=== PATIENT | female | born 1985 | race Caucasian/White ===

== ENCOUNTER 2018-08-16 13:36 | Inpatient (IN) | payer OTHER ==
[~2018-08-16] VITALS: Ht 160 cm; Wt 77.3 kg
[2018-08-16 14:45] LABS: BASOPHILS % (AUTO) 0.7 % (0.0-2.0); EOSINOPHILS % (AUTO) 0.3 % (1.0-6.0); HEMATOCRIT 39.5 % (36-46); HEMOGLOBIN 12.9 g/dL (12.0-16.0); LYMPHOCYTES # (AUTO) 1.9 K/uL (1.0-4.8); LYMPHOCYTES % (AUTO) 24.1 % (22.0-44.0); MEAN CORPUSCULAR HGB CONC 32.8 G/dL (31.0-37.0); MEAN CORPUSCULAR VOLUME 89 fL (80-100); MONOCYTES # (AUTO) 0.5 K/uL (0.1-1.0); MONOCYTES % (AUTO) 6.9 % (2.0-9.0); NEUTROPHILS # (AUTO) 5.4 K/uL (1.8-7.7); PLATELET COUNT (AUTO) 132 K/uL (150-450); RED BLOOD CELL COUNT(AUTO) 4.46 MIL/uL (4.00-5.20); RED CELL DISTRIBUTION WIDTH 16.8 % (11.5-14.5)
[2018-08-16 15:00] LABS: ANION GAP 15 mmol/L (8-16); CALCIUM, TOTAL 8.6 mg/dL (8.8-10.5); CARBON DIOXIDE 20 mmol/L (22-29); CHLORIDE 102 mmol/L (98-107); CREATININE 0.84 mg/dL (0.60-1.30); GLOMERULAR FILTR. RATE CALC > 60 mL/min (>60); GLUCOSE,RANDOM 108 mg/dL (70-110); POTASSIUM 3.8 mmol/L (3.5-5.1); SODIUM SERUM 137 mmol/L (136-145); UREA NITROGEN, BLOOD 8 mg/dL (7-18)
[2018-08-16 15:04] VITALS: BP 127/68
[2018-08-16 15:05] LABS: ALANINE AMINOTRANSFERASE 15 U/L (12-78); ALBUMIN 2.5 g/dL (3.4-5.0); ALKALINE PHOSPHATASE 184 U/L (46-116); ASPARTATE AMINOTRANSFERASE 20 U/L (15-37); BILIRUBIN,TOTAL 0.1 mg/dL (0.1-1.0); TOTAL PROTEIN, SERUM 6.6 g/dL (6.4-8.2); URIC ACID 5.2 mg/dL (2.6-7.2)
[2018-08-16] MEDS ORDERED: PREN1TAB80 PO (15:12)
[2018-08-16] MEDS ORDERED: RINGERS SOLUTION,LACTATED 1,000 ML IV PRN (16:51)
[2018-08-16] MEDS ORDERED: DINOPROSTONE 10 MG VAGINAL SUPPOSITORY VG ONE (17:00)
[2018-08-16] MEDS ORDERED: CITRIC ACID/SODIUM CITRATE 30 ML SOLUTION UDCUP PO PRN (17:00)
[2018-08-16] MEDS ORDERED: METOCLOPRAMIDE HCL 5 MG/ML 2 ML VIAL IVP PRN (17:00)
[2018-08-16] MEDS: RINGERS SOLUTION,LACTATED 1,000 ML IV SCH ×2 (17:24→21:25)
[2018-08-16 17:39] LABS: BASOPHILS % (AUTO) 0.7 % (0.0-2.0); EOSINOPHILS % (AUTO) 0.5 % (1.0-6.0); HEMATOCRIT 39.6 % (36-46); HEMOGLOBIN 13.1 g/dL (12.0-16.0); LYMPHOCYTES # (AUTO) 2.4 K/uL (1.0-4.8); LYMPHOCYTES % (AUTO) 28.2 % (22.0-44.0); MEAN CORPUSCULAR HEMOGLOBIN 29.1 pg (26.0-34.0); MEAN CORPUSCULAR HGB CONC 33.2 G/dL (31.0-37.0); MEAN CORPUSCULAR VOLUME 88 fL (80-100); MONOCYTES # (AUTO) 0.6 K/uL (0.1-1.0); MONOCYTES % (AUTO) 7.3 % (2.0-9.0); NEUTROPHILS # (AUTO) 5.3 K/uL (1.8-7.7); NEUTROPHILS % (AUTO) 63.3 % (40.0-70.0); PLATELET COUNT (AUTO)-OB 142 K/uL (150-450); RED BLOOD CELL COUNT(AUTO) 4.52 MIL/uL (4.00-5.20); RED CELL DISTRIBUTION WIDTH 16.8 % (11.5-14.5)
[2018-08-16 18:12] VITALS: BP 119/60
[2018-08-16] MEDS ORDERED: OXYGEN THERAPY IH SCH (20:00)
[2018-08-17] MEDS ORDERED: METHYLERGONOVINE MALEATE 0.2 MG/ML VIAL IM PRN
[2018-08-17] MEDS: FentaNYL CITRATE-PF 100 MCG/2 ML VIAL IVP PRN ×4 (00:03→01:53)
[2018-08-17] MEDS ORDERED: ROPIVACAINE HCL/PF 0.2% 100 ML ED ONE (04:48)
[2018-08-17] MEDS ORDERED: -PHARMACY NOTE- MISC ONE (05:00)
[2018-08-17] MEDS ORDERED: DiphenhydrAMINE HCL 50 MG/ML VIAL IVP PRN (05:30)
[2018-08-17] MEDS ORDERED: ROPIVACAINE HCL/PF 0.2% 100 ML ED PRN (05:30)
[2018-08-17] MEDS ORDERED: ONDANSETRON HCL 4 MG/2 ML VIAL IVP PRN (05:30)
[2018-08-17] MEDS: RINGERS SOLUTION,LACTATED 1,000 ML IV SCH ×3 (05:35→15:27)
[2018-08-17] MEDS ORDERED: OXYTOCIN 30 UNITS/LACT RINGERS 500 ML IV PRN (06:17)
[2018-08-17] MEDS ORDERED: AMPICILLIN SODIUM 2 GM/NS 100 ML IV ONE (11:30)
[2018-08-17] MEDS ORDERED: OXYTOCIN 30 UNITS/LACT RINGERS 500 ML IV ONE (14:56)
[2018-08-17] MEDS ORDERED: LANOLIN 7 GM OINTMENT TP PRN (15:00)
[2018-08-17] MEDS ORDERED: GLYCERIN/WITCH HAZEL LEAF 40 PADS JAR TP PRN (15:00)
[2018-08-17] MEDS ORDERED: BENZOCAINE 20%/MENTHOL 56 GM SPRAY CANISTER TP PRN (15:00)
[2018-08-17] MEDS ORDERED: IBUPROFEN 800 MG TABLET PO PRN (15:00)
[2018-08-17] MEDS ORDERED: LIDOCAINE/PF 1% 30 ML VIAL INJ PRN ×2 (15:00)
[2018-08-17] MEDS ORDERED: OxyCODONE HCL/ACETAMINOPHEN 5-325 MG TABLET PO PRN ×2 (15:00)
[2018-08-17] MEDS: CeFAZolin 2 GM/DEXTROSE 50 ML IV SCH ×2 (15:26→23:28)
[2018-08-17] MEDS: MAGNESIUM HYDROXIDE SUSPENSION 30 ML UDCUP PO PRN (21:28)
[2018-08-18 05:56] LABS: HEMATOCRIT 31.3 % (36-46); HEMOGLOBIN 10.5 g/dL (12.0-16.0); MEAN CORPUSCULAR HEMOGLOBIN 29.6 pg (26.0-34.0); MEAN CORPUSCULAR HGB CONC 33.4 G/dL (31.0-37.0); MEAN CORPUSCULAR VOLUME 88 fL (80-100); PLATELET COUNT (AUTO)-OB 103 K/uL (150-450); RED BLOOD CELL COUNT(AUTO) 3.54 MIL/uL (4.00-5.20); RED CELL DISTRIBUTION WIDTH 16.7 % (11.5-14.5)
[2018-08-18] MEDS: CeFAZolin 2 GM/DEXTROSE 50 ML IV SCH ×2 (06:56→14:37)
[2018-08-18 08:21] LABS: BAND NEUTROPHILS % (MANUAL) 16 % (0-5); LYMPHOCYTES % (MANUAL) 11 % (22-44); MONOCYTES % (MANUAL) 4 % (2-9); SEGMENTED NEUTROPHILS % 69 % (40-70)
[2018-08-18] MEDS: MAGNESIUM HYDROXIDE SUSPENSION 30 ML UDCUP PO PRN (09:52)
[2018-08-18] MEDS ORDERED: IBUP-2071 PO (15:19)
[2018-08-18] MEDS ORDERED: DSS100 PO (15:19)
[2018-08-18] MEDS ORDERED: FERR-89 PO (15:20)
== END 2018-08-18 17:25 | disposition home or self-care (01) | DRG 768 ==
LOC: OBSVTOIN 13:36 → 4S 13:36
PROVIDERS: ADMIT Obstetrics & Gynecology; ATTEND Obstetrics & Gynecology
PROC: 10D07Z6 Extraction of Products of Conception, Vacuum, Via Natural or Artificial Opening (ICD-10-PCS; principal; 2018-08-17)
PROC: 0DQR0ZZ Repair Anal Sphincter, Open Approach (ICD-10-PCS; 2018-08-17)
PROC: 0W8NXZZ Division of Female Perineum, External Approach (ICD-10-PCS; 2018-08-17)
PROC: 3E0R3BZ Introduction of Anesthetic Agent into Spinal Canal, Percutaneous Approach (ICD-10-PCS; 2018-08-17)
PROC: 00HU33Z Insertion of Infusion Device into Spinal Canal, Percutaneous Approach (ICD-10-PCS; 2018-08-17)
DX: O70.20 Third degree perineal laceration during delivery, unspecified (principal); Z37.0 Single live birth; O66.5 Attempted application of vacuum extractor and forceps; Z3A.40 40 weeks gestation of pregnancy
CPT/HCPCS: 84550; 86850; 86900; 86901; J0290; J0690; J2590; J2795; J3010; J3490; J7120